=== PATIENT | female | born 2000 | race Hispanic/Latino ===

== ENCOUNTER → 2024-07-06 | Day surgery (SDC) | payer OTHER ==
[~2024-07-06] MED LIST: KETAMINE 50MG/5ML SYR ONE; LACTATED RINGER'S 1,000 ML ONE; PROPOFOL IV EMULSION 50 ML IV ONE
[2024-07-06 16:30] VITALS: BP 108/61; PULSE 80; RESP 18; O2SAT 100
== END | disposition home or self-care (01) ==
LOC: ENDO 05:00
PROVIDERS: ATTEND Internal Medicine Gastroenterology
DX: K29.60 Other gastritis without bleeding (principal); K29.50 Unspecified chronic gastritis without bleeding; B96.81 Helicobacter pylori [H. pylori] as the cause of diseases classified elsewhere; K20.90 Esophagitis, unspecified without bleeding; K52.9 Noninfective gastroenteritis and colitis, unspecified; K62.89 Other specified diseases of anus and rectum; K59.00 Constipation, unspecified; K21.9 Gastro-esophageal reflux disease without esophagitis; B37.0 Candidal stomatitis; R63.0 Anorexia; R63.4 Abnormal weight loss; N76.0 Acute vaginitis; F41.9 Anxiety disorder, unspecified; Z80.0 Family history of malignant neoplasm of digestive organs
CPT/HCPCS: 36415; 43239; 43450; 45380; 84702; J2470; J2704; J7121; 45378